=== PATIENT | female | born 1955 | race African-American/Black ===

== ENCOUNTER 2017-09-02 19:16 | Emergency (ER) | payer BC ==
[~2017-09-02] VITALS: Ht 162.6 cm; Wt 91.0 kg
[2017-09-02] MEDS ORDERED: IBUPROFEN 800MG TABLET PO ONE (21:00)
[2017-09-02 23:00] VITALS: BP 138/75
== END 2017-09-02 23:36 | disposition home or self-care (01) ==
LOC: ER 22:30
DX: J06.9 Acute upper respiratory infection, unspecified (principal); I10 Essential (primary) hypertension; J45.909 Unspecified asthma, uncomplicated; E78.00 Pure hypercholesterolemia, unspecified; Z88.0 Allergy status to penicillin; Z90.49 Acquired absence of other specified parts of digestive tract
CPT/HCPCS: 87070; 87430; 87804; 99284